=== PATIENT | female | born 1960 | race Two or more races ===

== ENCOUNTER 2024-08-23 12:06 | Inpatient (IN) | payer OTHER ==
[~2024-08-23] VITALS: Ht 157.5 cm; Wt 68.0 kg
[~2024-08-23 12:06] MED LIST: CIPRO750 MG PO; CLONAZEPAM1 MG PO; DOCUSATE SODIU100 MG PO; METHYLPRED4 MG/DOSE- PO; NEURONTIN PO; PERCOCET 5/3251 TAB PO
[2024-08-23] MEDS ORDERED: ALPRAZOLAM (13:17)
[2024-08-23] MEDS ORDERED: PROTONIX40 MG (13:18)
[2024-08-23] MEDS ORDERED: XYZAL5 MG (13:18)
[2024-08-23] MEDS ORDERED: TRAMADOL HCL50 MG (13:18)
[2024-08-27] MEDS ORDERED: VANCOMYCIN HCL 1,000 MG VIAL ONE ×3 (08:28→20:26)
[2024-08-27] MEDS ORDERED: CEFAZOLIN SODIUM 1,000 MG VIAL ONE ×2 (08:29→18:27)
[2024-08-27] MEDS ORDERED: METHYLPREDNISOLONE ACETATE 80 MG/ML VIAL ONE (08:50)
[2024-08-27] MEDS ORDERED: METHYLPREDNISOLONE SOD SUCC 125 MG VIAL ONE ×2 (08:52→18:27)
[2024-08-27] MEDS ORDERED: MEDROLPACK PO (10:30)
[2024-08-27] MEDS ORDERED: COLACE100 MG PO (10:30)
[2024-08-27] MEDS ORDERED: AMOX-CLAV 875-1 EACH PO (10:30)
[2024-08-27] MEDS ORDERED: GABAPENTIN100 M2 PO (10:31)
[2024-08-27] MEDS ORDERED: NEURONTIN800 MG PO (10:31)
[2024-08-27] MEDS ORDERED: PROMETHAZINE HCL 50 MG/ML AMPUL IM PRN (10:45)
[2024-08-27] MEDS ORDERED: ENALAPRILAT DIHYDRATE 1.25 MG/ML VIAL IV PRN (10:45)
[2024-08-27] MEDS ORDERED: 0.9 % SODIUM CHLORIDE 1,000 ML IV SCH (10:45)
[2024-08-27] MEDS ORDERED: VANCOMYCIN HCL 1,000 MG VIAL IR ONE (11:30)
[2024-08-27] MEDS ORDERED: VANCOMYCIN HCL 1,000 MG VIAL SPEPROC ONE (11:30)
[2024-08-27] MEDS ORDERED: METHYLPREDNISOLONE ACETATE 80 MG/ML VIAL IM ONE (11:30)
[2024-08-27] MEDS ORDERED: CEFAZOLIN SODIUM 1,000 MG VIAL IV ONE (11:30)
[2024-08-27] MEDS ORDERED: VANCOMYCIN HCL 1,000 MG VIAL IV ONE (11:30)
[2024-08-27] MEDS ORDERED: hydrALAZINE HCL 20 MG VIAL IV ONE (11:45)
[2024-08-27] MEDS ORDERED: METHYLPREDNISOLONE SOD SUCC 125 MG VIAL IV NR (12:00)
[2024-08-27] MEDS ORDERED: HEMOSTATIC MATRIX WITH THROMBIN KIT TOP ONE (12:30)
[2024-08-27] MEDS ORDERED: THROMBIN,HU/FIBRINOGEN/CALCIUM 10 ML SYRINGE TOP ONE (12:30)
[2024-08-27] MEDS ORDERED: METHYLPREDNISOLONE SOD SUCC 125 MG VIAL IV ONE (12:45)
[2024-08-27] MEDS ORDERED: MORPHINE SULFATE 4 MG/ML CARTRIDGE IV SCH (13:00)
[2024-08-27] MEDS ORDERED: DOCUSATE SODIUM 100MG CAP PO SCH (13:00)
[2024-08-27] MEDS ORDERED: METHYLPREDNISOLONE SOD SUCC 125 MG VIAL IV SCH (17:00)
[2024-08-27] MEDS ORDERED: FAMOtidine 20 MG TABLET PO SCH (17:00)
[2024-08-27] MEDS ORDERED: CEFAZOLIN SODIUM 1,000 MG in 0.9 % SODIUM CHLORIDE 50 ML IV SCH (17:00)
[2024-08-27] MEDS ORDERED: ACETAMINOPHEN 500 MG GEL..CAP PO ONE (18:27)
[2024-08-27 18:55] VITALS: BP 107/66; O2SAT 98
[2024-08-27] MEDS ORDERED: ACETAMINOPHEN 500 MG GEL..CAP PO SCH (20:00)
[2024-08-27 21:00] VITALS: O2SAT 85
[2024-08-27] MEDS ORDERED: VANCOMYCIN HCL 1,000 MG VIAL IV SCH (21:00)
[2024-08-27] MEDS ORDERED: GABAPENTIN 800 MG TABLET PO SCH (21:00)
[2024-08-27] MEDS ORDERED: CLONAZEPAM 1 MG TABLET PO SCH (21:00)
[2024-08-28] VITALS (7 sets, daily range): BP systolic 112–136; BP diastolic 60–81; O2SAT 90–97
[2024-08-28] MEDS ORDERED: SODIUM CHLORIDE 0.45 % 1,000 ML IV SCH
[2024-08-28] MEDS ORDERED: OxyCODONE HCL 5 MG TABLET (ROXICODONE) PO PRN (06:01)
[2024-08-28] MEDS ORDERED: VANCOMYCIN HCL 1,000 MG VIAL ONE ×2 (06:45→13:57)
[2024-08-28 07:42] LABS: BASO % 0.1 % (0.1-1.2); HEMATOCRIT 36.4 % (34.1-44.9); HEMOGLOBIN 12.3 g/dL (11.2-15.7); LYMPH # 0.45 (1.18-3.74); LYMPH % 2.7 % (19.3-53.1); MONO % 2.4 % (4.7-12.5); NEUT # 15.45 (1.56-6.13); NEUT % 94.2 % (34.0-71.1); PLATELET COUNT 283 K/uL (163-369); RED BLOOD COUNT 3.84 M/uL (3.93-5.22); RED CELL DISTRIBUTION WIDTH 14.1 % (11.6-14.4)
[2024-08-28 08:27] LABS: CALCIUM 8.3 mg/dL (8.5-10.1); CREATININE SERUM 0.44 mg/dL (0.55-1.02); GFR 144.42; POTASSIUM 3.9 mEq/L (3.5-5.1)
[2024-08-28] MEDS ORDERED: TAMSULOSIN HCL 0.4 MG CAP PO SCH (09:00)
[2024-08-29 00:18] VITALS: BP 136/75; O2SAT 95
[2024-08-29 01:03] VITALS: O2SAT 93
[2024-08-29 04:59] VITALS: O2SAT 91
[2024-08-29 08:00] VITALS: BP 146/88; O2SAT 96
== END 2024-08-29 16:10 | disposition home or self-care (01) | DRG 428 ==
LOC: SURH 08-27 10:15 → O/R 08-27 15:55 → SURH 08-27 16:00
PROVIDERS: ADMIT Orthopaedic Surgery Orthopaedic Surgery of the Spine; ATTEND Orthopaedic Surgery Orthopaedic Surgery of the Spine
PROC: 0SG1071 Fusion of 2 or more Lumbar Vertebral Joints with Autologous Tissue Substitute, Posterior Approach, Posterior Column, Open Approach (ICD-10-PCS; 2024-08-27)
PROC: 0ST20ZZ Resection of Lumbar Vertebral Disc, Open Approach (ICD-10-PCS; 2024-08-27)
PROC: 0QB30ZZ Excision of Left Pelvic Bone, Open Approach (ICD-10-PCS; 2024-08-27)
PROC: 07DR0ZZ Extraction of Iliac Bone Marrow, Open Approach (ICD-10-PCS; 2024-08-27)
PROC: 4A1104G Monitoring of Peripheral Nervous Electrical Activity, Intraoperative, Open Approach (ICD-10-PCS; 2024-08-27)
PROC: 4A12X4Z Monitoring of Cardiac Electrical Activity, External Approach (ICD-10-PCS; 2024-08-27)
PROC: XRGC0R7 Fusion of 2 or more Lumbar Vertebral Joints using Custom-Made Anatomically Designed Interbody Fusion Device, Open Approach, New Technology Group 7 (ICD-10-PCS; principal; 2024-08-27 10:15)
DX: M48.062 Spinal stenosis, lumbar region with neurogenic claudication (principal); M41.56 Other secondary scoliosis, lumbar region; E78.5 Hyperlipidemia, unspecified